=== PATIENT | male | born 1975 | race Caucasian/White ===

== ENCOUNTER 2022-08-17 17:48 | Emergency (ER) | payer BC ==
[~2022-08-17] VITALS: Ht 188 cm; Wt 103.2 kg
[2022-08-17] MEDS ORDERED: HYDROcodone/acetaminophen 10/325mg tab PO STA (20:35)
[2022-08-17] MEDS ORDERED: ketorolac trometh. 30mg/ml inj. IM ONE (21:25)
[2022-08-17] MEDS ORDERED: TETanus/Pertussis (Acell)/Diphther VAC/PF (Tdap-Adult) 0.5ml syringe IMVAC ONE (21:40)
[2022-08-17] MEDS ORDERED: HYDR-3965 PO (21:53)
[2022-08-17 22:33] VITALS: BP 120/77
== END 2022-08-17 22:51 | disposition home or self-care (01) ==
LOC: ER 17:49
DX: S82.491A Other fracture of shaft of right fibula, initial encounter for closed fracture (principal); V29.99XA Rider (driver) (passenger) of other motorcycle injured in unspecified traffic accident, initial encounter; Y93.89 Activity, other specified; Y92.89 Other specified places as the place of occurrence of the external cause; Y99.8 Other external cause status
CPT/HCPCS: 29515; 73590; 73610; 73630; 90471; 90715; 96372; 99284; J1885

== ENCOUNTER 2022-09-03 10:10 | Day surgery (SDC) | payer BC ==
[2022-09-01 12:32] LABS: BASOPHILS # (AUTO) 0.1 X10'3 (0-0.2); BASOPHILS % (AUTO) 0.8 % (0-1); EOSINOPHILS # (AUTO) 0.2 X10'3 (0-0.9); LYMPHOCYTES # (AUTO) 2.3 X10'3 (1.1-4.8); LYMPHOCYTES % (AUTO) 28.1 % (21-51); MEAN CORPUSCULAR HEMOGLOBIN 28.3 PG (27.0-31.0); MEAN CORPUSCULAR HGB CONC 33.2 g/dL (33.0-36.5); MEAN CORPUSCULAR VOLUME 85.3 FL (78-98); MEAN PLATELET VOLUME 7.8 FL (7.4-10.4); MONOCYTES # (AUTO) 0.8 X10'3 (0-0.9); MONOCYTES % (AUTO) 10.1 % (2-12); NEUTROPHILS # (AUTO) 4.9 X10'3 (1.8-7.7); PRE OP HEMATOCRIT 41.7 % (42.0-52.0); PRE OP HEMOGLOBIN 13.8 g/dL (14.0-17.9); PRE OP PLATELET COUNT 349 X10'3 (140-440); RED BLOOD COUNT 4.89 X10'6 (4.70-6.10); RED CELL DISTRIBUTION WIDTH 14.7 % (11.5-14.5)
[2022-09-01 12:40] LABS: CLARITY,URINE CLEAR (Clear); COLOR,URINE YELLOW (Yellow); GLUCOSE, URINE NEGATIVE (Neg); KETONES,URINE NEGATIVE (Neg); LEUKOCYTE ESTERASE ,URINE NEGATIVE (Neg); NITRITES, URINE NEGATIVE (Neg); OCCULT BLOOD,URINE NEGATIVE (Neg); PROTEIN,URINE NEGATIVE (Neg); UROBILINOGEN,URINE 0.2 E.U/dL (0.2-1.0)
[2022-09-01 12:43] LABS: UA COLLECTION TYPE CLN CATCH MIDSTREAM
[2022-09-01 12:46] LABS: ALBUMIN 3.9 G/DL (3.4-5.0); ALBUMIN/GLOBULIN RATIO 1.1 (1.1-1.5); ALKALINE PHOSPHATASE 84 IU/L (46-116); BLOOD UREA NITROGEN 16 MG/DL (7-18); BUN/CREATININE RATIO 16.7 (10.0-20.0); CHLORIDE 105 MMOL/L (99-107); CREATININE 0.96 MG/DL (0.60-1.10); PRE OP ANION GAP 9 (8-16); PRE OP AST 49 U/L (10-37); PRE OP BILIRUB, TOTAL 0.5 MG/DL (0.0-1.0); PRE OP GLUCOSE 86 MG/DL (70-104); PRE OP POTASSIUM 4.3 MMOL/L (3.4-5.1); PRE OP SODIUM 141 MMOL/L (135-145); TOTAL CARBON DIOXIDE 27.4 MMOL/L (24-32); TOTAL PROTEIN 7.5 G/DL (6.4-8.2); eGFR 84 ML/MIN
[2022-09-01 13:12] LABS: PRE OP ALT 86 U/L (30-65)
[2022-09-03] VITALS (10 sets, daily range): BP systolic 86–125; BP diastolic 56–78; PULSE 68–89; RESP 8–17; TEMP 97.8; O2SAT 91–98
[~2022-09-03] VITALS: Ht 188 cm; Wt 111.1 kg
[~2022-09-03 10:10] MED LIST: ACET-2119 PO; ESCI20TA39 PO; IBUP-1986 PO; LEVO175T7 PO; cefazolin 2gm/D5W 100mL 100 ML IV ONE; famotidine 20mg tablet PO ONE; ringers solution, lacted 1,000 ML IV SCH
[2022-09-03] MEDS ORDERED: bacitracin 15gm ointment TP ONE (10:32)
[2022-09-03] MEDS ORDERED: fentaNYL/PF 50MCG/1 ML 2ML syringe ONE ×3 (10:35→14:29)
[2022-09-03] MEDS ORDERED: midazolam 1 mg/ML 2ml injection ONE (10:35)
[2022-09-03] MEDS ORDERED: meperidine/PF 25mg/ml syringe IV PRN ×3 (10:45)
[2022-09-03] MEDS ORDERED: morphine 4 MG/ML inj SYRINge IV PRN (10:45)
[2022-09-03] MEDS ORDERED: ondansetron/PF 4mg/2ml inj IV PRN (10:45)
[2022-09-03] MEDS ORDERED: proCHLORperazine 10 MG/2 ml inj IV PRN (10:45)
[2022-09-03] MEDS ORDERED: ringers solution, lacted 1,000 ML IV SCH (10:45)
[2022-09-03] MEDS ORDERED: morphine 2 MG/ML inj. syringe IV PRN (10:45)
[2022-09-03] MEDS ORDERED: ROPIVAcaine 0.5% (5mg/ml) 30ml vial ONE (10:46)
[2022-09-03] MEDS ORDERED: LIDOcaine 1%/PF 5ML 10 MG/ML VIAL ONE (10:46)
[2022-09-03] MEDS ORDERED: dexamethasone sod phosphate 4mg/ml inj. ONE (10:46)
[2022-09-03] MEDS ORDERED: ondansetron/PF 4mg/2ml inj ONE (10:46)
[2022-09-03] MEDS ORDERED: propofol inj 20 ML IV ONE (10:46)
[2022-09-03] MEDS ORDERED: rocuronium 10mg/ml inj IV ONE (10:51)
[2022-09-03] MEDS ORDERED: sevoflurane 250ml liquid IH ONE (10:51)
[2022-09-03] MEDS ORDERED: phenylephrine 10mg/ml inj. -priapism dosing ONE (11:36)
[2022-09-03] MEDS ORDERED: ePHEDrine 50MG/ML INJ. ONE (11:36)
[2022-09-03] MEDS ORDERED: ketamine 50mg/5ml syringe ONE (12:46)
[2022-09-03] MEDS ORDERED: povidone-iodine 10% ointment 1 APPLIC APPLIC TP ONE (14:56)
--- NOTE | 2022-09-03 15:56 | NUR ---
Received from OR via [facility], accompanied by Anesthesiologist RADHA and report given by Anesthesiolgist. PT EASILY RESPONDS TO VERBAL STIMULI. SAO2 92-93% ON RA. DENIES PAIN. MONITOR SR. IV TO L HAND 20 GUAGE. RLE ELEVATED. ENCASED IN POSTERIOR SPLINT. EXTERNAL FIXATION PINS TO ANKLE. TOES WARM W/ GOOD CAPILLARY REFILL. TWO ONQ BLOCK SITES - WILL CONNECT WHEN MED IS AVAILABLE. Addendum: 09/03/22 at 1623 by Aroldo Saldivar RN Amended: Links added.
[2022-09-03] MEDS ORDERED: acetaminophen 1,000mg/100ml IV 100 ML IV ONE (16:14)
[2022-09-03] MEDS ORDERED: ROPIVAcaine 0.2%/PF PUMP/bolus 545 ML ADDCANAL SCH ×2 (16:25→17:05)
[2022-09-03] MEDS ORDERED: ROPIVAcaine 0.2%/PF PUMP/bolus 545 ML POPLITEAL SCH (16:25)
[2022-09-03] MEDS ORDERED: ROPIVAcaine 0.2% (10 MG/5 ML) BOLUS INJECTION POPLITEAL PRN ×2 (16:55→17:05)
--- NOTE | 2022-09-03 17:36 | NUR ---
ALL DC CRITERIA HAS BEEN MET. VSS. DENIES PAIN. VOIDED PRIOR TO LEAVING AND 2 ON Q PUMPS PRESENT NOW AND FUNCTIONAL. PATIENT AMBULATING SAFELY. ALL DC CRITERIA HAS BEEN MET. AND PATIENT GIVEN ALL DC INSTRUCTIONS AND UNDERSTOOD. TAKEN OUT VIA WHEELCHAIR TO PERSONAL VEHICLE WITHOUT INCIDENT. PAIN TOLERABLE. Addendum: 09/03/22 at 1834 by Adolph Farias RN, RN Amended: Links added.
== END 2022-09-03 18:39 | disposition home or self-care (01) ==
LOC: PAS 10:10
PROVIDERS: ATTEND Podiatrist Foot & Ankle Surgery
DX: S92.251A Displaced fracture of navicular [scaphoid] of right foot, initial encounter for closed fracture (principal); S92.021A Displaced fracture of anterior process of right calcaneus, initial encounter for closed fracture; S92.211A Displaced fracture of cuboid bone of right foot, initial encounter for closed fracture; S92.421A Displaced fracture of distal phalanx of right great toe, initial encounter for closed fracture; S92.411A Displaced fracture of proximal phalanx of right great toe, initial encounter for closed fracture; G89.18 Other acute postprocedural pain; F32.A Depression, unspecified; E03.9 Hypothyroidism, unspecified; Z87.891 Personal history of nicotine dependence; Z79.82 Long term (current) use of aspirin; Z79.899 Other long term (current) drug therapy; X58.XXXA Exposure to other specified factors, initial encounter; Y93.55 Activity, bike riding; Y92.89 Other specified places as the place of occurrence of the external cause; Y99.8 Other external cause status
CPT/HCPCS: 20692; 25628; 28415; 28740; 36415; 64445; 64446; 64447; 64448; 73620; 80053; 81003; 82948; 85025; 93005; A6223; C1713; J0131; J0690; J1100; J2250; J2370; J2405; J2704; J2795; J3010; J3490; J7030; J7120; Z7506; Z7508; Z7512; 76000; A4618; A6253; A6449; A7000; C1769